=== PATIENT | female | born 1970 | race Asian ===

== ENCOUNTER → 2019-11-29 | Outpatient (CLI) | payer BC ==
[2019-11-29 12:54] LABS: EOSINOPHILS % 1.3 % (0.0-5.0); HEMATOCRIT. 38.7 % (36.0-48.0); HEMOGLOBIN. 13.5 g/dL (12.0-16.0); MEAN CORPUSCULAR HEMOGLOBIN 33.9 pg (28.0-32.0); MEAN CORPUSCULAR VOLUME 97.4 fL (81.0-99.0); MEAN PLATELET VOLUME 6.4 fl (7.4-10.4); MONOCYTES % 5.6 % (2.0-8.0); NEUTROPHILS % 68.1 % (40.0-76.0); PLATELET 434 x1000/uL (130-400); RED BLOOD CELL COUNT 3.98 mill/uL (4.2-5.4); RED CELL DISTRIBUTION WIDTH 13.2 % (11.6-14.6)
[2019-11-29 13:06] LABS: CHLORIDE 107 mEq/L (98-107)
[2019-11-29 13:17] LABS: LDL CHOLESTEROL 168 mg/dL (5-100); PHOSPHORUS 3.4 mg/dL (2.5-4.9)
[2019-11-29 13:18] LABS: BETA HYDROXYBUTYRATE 0.2 mMol/L (0.0-0.3)
[2019-11-29 13:19] LABS: HDL CHOLESTEROL 88 mg/dL (40-59)
[2019-12-01 08:11] LABS: *CREATININE RANDOM URINE 45.3 mg/dL (Not Estab.); MICROALBUMIN RANDOM URINE 117.6 ug/mL (Not Estab.)
== END | disposition home or self-care (01) ==
LOC: US 11:51
PROVIDERS: ATTEND Internal Medicine Nephrology
DX: I12.9 Hypertensive chronic kidney disease with stage 1 through stage 4 chronic kidney disease, or unspecified chronic kidney disease (principal); N18.9 Chronic kidney disease, unspecified
CPT/HCPCS: 36415; 76770; 80053; 80061; 82010; 82043; 82570; 84100; 85025